=== PATIENT | male | born 1955 | race Caucasian/White ===

== ENCOUNTER 2017-03-02 20:56 | Emergency (ER) | payer BC ==
[~2017-03-02] VITALS: Ht 177.8 cm; Wt 96.0 kg
[2017-03-02] MEDS ORDERED: SODIUM CHLORIDE 0.9% FLUSH 10 ML FLUSH IVF PRN (21:00)
[2017-03-02] MEDS ORDERED: LOVA10TA PO (21:00)
[2017-03-02 21:01] VITALS: BP 130/73; PULSE 91; RESP 23; TEMP 97.4; O2SAT 96
--- NOTE | 2017-03-02 21:21 | RADRPT ---
EXAM DATE/TIME: 03/02/2017 21:04 [facility] COMPARISON: No previous studies available for comparison. INDICATIONS : Chest pain. MEDICAL HISTORY : Hypercholesterolemia. SURGICAL HISTORY : Cholecystectomy. Tonsillectomy. Lap Band. ENCOUNTER: Initial ACUITY: 1 day PAIN SCORE: 10/10 LOCATION: Bilateral chest FINDINGS: A single view of the chest demonstrates the lungs to be symmetrically aerated without evidence of mas s, infiltrate or effusion. The cardiomediastinal contours are unremarkable. Osseous structures are intact. CONCLUSION: No acute disease. Germán Jauregui MD on March 02, 2017 at 21:18 Board Certified Radiologist. This report was verified electronically.
[2017-03-02 21:28] LABS: AUTOMATED NEUTROPHIL # 3.7 TH/MM3 (1.8-7.7); BASOPHIL # 0.1 TH/MM3 (0-0.2); EOSINOPHIL # 0.3 TH/MM3 (0-0.4); EOSINOPHIL % 4.3 % (0.0-4.0); HEMATOCRIT 42.8 % (39.0-51.0); HEMOGLOBIN 14.3 GM/DL (13.0-17.0); LYMPH % 34.5 % (9.0-44.0); LYMPHOCYTE # 2.7 TH/MM3 (1.0-4.8); MEAN CELL VOLUME 97.8 FL (80.0-100.0); MEAN CORPUSCULAR HEMOGLOBIN 32.7 PG (27.0-34.0); MEAN CORPUSCULAR HGB CONC 33.5 % (32.0-36.0); MEAN PLATELET VOLUME 6.3 FL (7.0-11.0); MONO % 12.5 % (0.0-8.0); NEUT % 47.7 % (16.0-70.0); PLATELET COUNT 313 TH/MM3 (150-450); RED BLOOD COUNT 4.38 MIL/MM3 (4.50-5.90); WHITE BLOOD COUNT 7.7 TH/MM3 (4.0-11.0)
[2017-03-02 21:44] LABS: ALBUMIN 3.6 GM/DL (3.4-5.0); ALT (GPT) 37 U/L (12-78); AST (GOT) 24 U/L (15-37); BICARBONATE 20.8 MEQ/L (21.0-32.0); BLOOD UREA NITROGEN 13 MG/DL (7-18); CALCIUM 8.8 MG/DL (8.5-10.1); CHLORIDE 110 MEQ/L (98-107); CREATININE 0.84 MG/DL (0.60-1.30); GLOMERULAR FILTRATION RATE 93 ML/MIN (>89); GLUCOSE,RANDOM 69 MG/DL (74-106); MAGNESIUM 2.2 MG/DL (1.5-2.5); SODIUM (NA) 142 MEQ/L (136-145)
[2017-03-02 21:45] LABS: INTERNATIONAL NORMALIZED RATIO 0.9 RATIO; PROTHROMBIN TIME - PATIENT 9.4 SEC (9.8-11.6)
[2017-03-02 21:47] LABS: D-DIMER 0.27 MG/L FEU (0.00-0.50)
[2017-03-02 21:48] LABS: ALKALINE PHOSPHATASE 77 U/L (45-117); TOTAL BILIRUBIN ADULT 0.2 MG/DL (0.2-1.0); TOTAL PROTEIN 7.4 GM/DL (6.4-8.2); TROPONIN I LESS THAN 0.02 NG/ML (0.02-0.05)
--- NOTE | 2017-03-02 22:20 | RADRPT ---
EXAM DATE/TIME: 03/02/2017 21:55 [facility] COMPARISON: No previous studies available for comparison. INDICATIONS : Lower chest pain. ORAL CONTRAST: No oral contrast ingested. RADIATION DOSE: 16.47 CTDIvol (mGy) MEDICAL HISTORY : Hypercholesterolemia. SURGICAL HISTORY : Cholecystectomy. Lap band ENCOUNTER: Initial ACUITY: 1 day PAIN SCALE: 4/10 LOCATION: lower chest TECHNIQUE: Volumetric scanning of the abdomen and pelvis was performed. Using automated exposure control and ad justment of the mA and/or kV according to patient size, radiation dose was kept as low as reasonably achievable to obtain optimal diagnostic quality images. DICOM format image data is available electro nically for review and comparison. FINDINGS: LOWER LUNGS: The visualized lower lungs are clear. LIVER: Homogeneous density without lesion. There is no dilation of the biliary tree. No calcified gallston es. SPLEEN: Normal size without lesion. PANCREAS: Within normal limits. KIDNEYS: Normal in size and shape. There is no mass, stone, or hydronephrosis. ADRENAL GLANDS: Within normal limits. VASCULAR: There is no aortic aneurysm. BOWEL/MESENTERY: A lap band is identified along the cardia the stomach. There is marked gaseous distention of the stom ach. The small and large intestinal tract are unremarkable. There is no evidence of significant ileus . Palpable diverticular seen throughout the sigmoid colon. ABDOMINAL WALL: Within normal limits. RETROPERITONEUM: There is no lymphadenopathy. BLADDER: No wall thickening or mass. REPRODUCTIVE: Within normal limits. INGUINAL: There is no lymphadenopathy or hernia. MUSCULOSKELETAL: Within normal limits for patient age. CONCLUSION: 1. Marked gaseous distention of the stomach 2. Gastric lap band in place 3. No evidence of intestinal ileus or acute inflammatory disease 4. Uncomplicated diverticulosis. 5. Otherwise unremarkable exam. Germán Jauregui MD on March 02, 2017 at 22:14 Board Certified Radiologist. This report was verified electronically.
[2017-03-02 23:39] VITALS: BP 112/65; PULSE 78; RESP 14; O2SAT 97
--- NOTE | 2017-03-03 01:22 | PD ---
HPI . Acute respiratory symptoms Chief Complaint: Respiratory Symptoms Time Seen by Provider: 20:59 Travel History International Travel<30 days: No Contact w/Intl Traveler<30days: No Traveled to known affect area: No History of Present Illness HPI 7-year-old male brought in by ambulance secondary to shortness of breath. Patient appears intoxicated, is extremely poor historian. Denies chest pain. PFSH Past Medical History Narrative Medical Past medical history reviewed High Cholesterol: Yes Diminished Hearing: No Tetanus Vaccination: Unknown Influenza Vaccination: Yes Past Surgical History Cholecystectomy: Yes Tonsillectomy: Yes Other Surgery: Yes (lap band.) Social History Alcohol Use: Yes (twice weekly) Tobacco Use: No Substance Use: No Allergies-Medications (Allergen,Severity, Reaction): Coded Allergies: No Known Allergies (Unverified , 03/02/17) Reported Meds & Prescriptions Reported Meds & Active Scripts Active Reported Lovastatin 10 Mg Tab 10 Mg PO DAILY Narrative Medication Allergies and medications reviewed Review of Systems ROS Limitations: Intoxication, Altered Mental Status, Poor Historian Except as stated in HPI: all other systems reviewed are Neg General / Constitutional: No: Fever Eyes: No: Visual changes HENT: No: Headaches Cardiovascular: No: Chest Pain or Discomfort Respiratory: Positive: Shortness of Breath Gastrointestinal: No: Abdominal Pain Genitourinary: No: Dysuria Musculoskeletal: No: Pain Skin: No Rash Neurologic: No: Weakness Psychiatric: No: Depression Endocrine: No: Polydipsia Hematologic/Lymphatic: No: Easy Bruising Physical Exam Exam Limitations: Intoxication, Altered Mental Status, Poor Historian Narrative GENERAL: Awake and intoxicated, poor historian. Appears to be anxious. Vital signs are normal oxygen saturation 97% on room air SKIN: Warm and dry. Slightly flushed skin HEAD: Atraumatic. Normocephalic. EYES: Pupils equal and round. No scleral icterus. No injection or drainage. ENT: No nasal bleeding or discharge. Mucous membranes pink and moist. NECK: Trachea midline. No JVD. Supple full range of motion CARDIOVASCULAR: Regular rate and rhythm. S1S2 no murmurs or gallops RESPIRATORY: No accessory muscle use. Clear to auscultation. Breath sounds equal bilaterally. GASTROINTESTINAL: Abdomen soft, non-tender, nondistended. Hepatic and splenic margins not palpable. MUSCULOSKELETAL: Extremities without clubbing, cyanosis, or edema. No obvious deformities. NEUROLOGICAL: Awake and alert. No obvious cranial nerve deficits. Motor grossly within normal limits. Five out of 5 muscle strength in the arms and legs. Normal speech. PSYCHIATRIC: Appropriate mood and affect; insight and judgment normal. Data Data Last Documented VS Vital Signs Date Time Temp Pulse Resp B/P (MAP) Pulse Ox O2 Delivery O2 Flow Rate FiO2 03/02/17 23:39 78 14 112/65 (81) 97 Room Air 03/02/17 21:01 97.4 Orders Orders Electrocardiogram (03/02/17 20:59) B-Type Natriuretic Peptide (03/02/17 20:59) Ckmb (Isoenzyme) Profile (03/02/17 20:59) Complete Blood Count With Diff (03/02/17 20:59) Comprehensive Metabolic Panel (03/02/17 20:59) D-Dimer (03/02/17 20:59) Magnesium (Mg) (03/02/17 20:59) Prothrombin Time / Inr (Pt) (03/02/17 20:59) Act Partial Throm Time (Ptt) (03/02/17 20:59) Troponin I (03/02/17 20:59) Chest, Single Ap (03/02/17 20:59) Ecg Monitoring (03/02/17 20:59) Bilateral Bp Monitoring (03/02/17 20:59) Iv Access Insert/Monitor (03/02/17 20:59) Oximetry (03/02/17 20:59) Oxygen Administration (03/02/17 20:59) Sodium Chloride 0.9% Flush (Ns Flush) (03/02/17 21:00) Drug Screen, Random Urine (03/02/17 20:59) Alcohol (Ethanol) (03/02/17 20:59) Ct Abd/Pel W/O Iv Contrast (03/02/17 ) Troponin I (03/03/17 00:16) Labs Laboratory Tests Test 03/02/17 21:10 03/02/17 21:50 03/03/17 00:20 White Blood Count 7.7 TH/MM3 Red Blood Count 4.38 MIL/MM3 Hemoglobin 14.3 GM/DL Hematocrit 42.8 % Mean Corpuscular Volume 97.8 FL Mean Corpuscular Hemoglobin 32.7 PG Mean Corpuscular Hemoglobin Concent 33.5 % Red Cell Distribution Width 13.0 % Platelet Count 313 TH/MM3 Mean Platelet Volume 6.3 FL Neutrophils (%) (Auto) 47.7 % Lymphocytes (%) (Auto) 34.5 % Monocytes (%) (Auto) 12.5 % Eosinophils (%) (Auto) 4.3 % Basophils (%) (Auto) 1.0 % Neutrophils # (Auto) 3.7 TH/MM3 Lymphocytes # (Auto) 2.7 TH/MM3 Monocytes # (Auto) 1.0 TH/MM3 Eosinophils # (Auto) 0.3 TH/MM3 Basophils # (Auto) 0.1 TH/MM3 CBC Comment DIFF FINAL Differential Comment Prothrombin Time 9.4 SEC Prothromb Time International Ratio 0.9 RATIO Activated Partial Thromboplast Time 24.5 SEC D-Dimer Quantitative (PE/DVT) 0.27 MG/L FEU Blood Urea Nitrogen 13 MG/DL Creatinine 0.84 MG/DL Random Glucose 69 MG/DL Total Protein 7.4 GM/DL Albumin 3.6 GM/DL Calcium Level 8.8 MG/DL Magnesium Level 2.2 MG/DL Alkaline Phosphatase 77 U/L Aspartate Amino Transf (AST/SGOT) 24 U/L Alanine Aminotransferase (ALT/SGPT) 37 U/L Total Bilirubin 0.2 MG/DL Sodium Level 142 MEQ/L Potassium Level 3.7 MEQ/L Chloride Level 110 MEQ/L Carbon Dioxide Level 20.8 MEQ/L Anion Gap 11 MEQ/L Estimat Glomerular Filtration Rate 93 ML/MIN Total Creatine Kinase 77 U/L Troponin I LESS THAN 0.02 NG/ML LESS THAN 0.02 NG/ML B-Type Natriuretic Peptide 6 PG/ML Ethyl Alcohol Level 189 MG/DL Urine Opiates Screen NEG Urine Barbiturates Screen NEG Urine Amphetamines Screen NEG Urine Benzodiazepines Screen NEG Urine Cocaine Screen NEG Urine Cannabinoids Screen NEG MDM Medical Decision Making Medical Screen Exam Complete: Yes Emergency Medical Condition: Yes Medical Record Reviewed: Yes Differential Diagnosis Surface of breath, anxiety reaction, intoxication, chest pain Narrative Course EKG normal sinus rhythm at 87 bpm nonischemic intervals normal Laboratory examinations reviewed, patient has chronic enzymes are normal at 003 hours. 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 Patient became more sober, has no complaints, ox and saturation 99% on room air. Patient is requesting discharge Diagnosis Primary Impression: Atypical chest pain Additional Impression: Alcohol intoxication Qualified Codes: F10.929 - Alcohol use, unspecified with intoxication, unspecified Patient Instructions: Alcohol Intoxication (ED), Chest Pain (ED), General Instructions Departure Forms: Tests/Procedures Additional Instructions: Follow-up with your doctor. Refrain from taking alcohol heavily. Return for worsening Disposition: 01 DISCHARGE HOME Condition: Stable Sriram Milton MD Mar 03, 2017 01:22
--- NOTE | 2017-03-03 12:52 | EKG ---
Date Performed: 03/02/2017 Time Performed: 21:08:49 PTAGE: 61 years EKG: Poor initial anterior forces in V2 which is probably within normal limit Otherwise within n ormal limits ABNORMAL ECG NO PREVIOUS TRACING DOCTOR: Oskar Ochoa Interpretating Date/Time 03/03/2017 12:51:39
== END 2017-03-03 01:41 | disposition home or self-care (01) ==
LOC: NEPE 20:56
DX: R07.89 Other chest pain (principal); F10.129 Alcohol abuse with intoxication, unspecified; Y90.6 Blood alcohol level of 120-199 mg/100 ml; E78.00 Pure hypercholesterolemia, unspecified; Z90.49 Acquired absence of other specified parts of digestive tract; Z98.84 Bariatric surgery status; Z79.899 Other long term (current) drug therapy
CPT/HCPCS: 71045; 74176; 80053; 80307; 82550; 83735; 83880; 84484; 85025; 85379; 85610; 85730; 93005